=== PATIENT | female | born 1960 ===

== ENCOUNTER 2024-02-26 05:51 | Day surgery (SDC) | payer OTHER ==
[~2024-02-26] VITALS: Ht 162.6 cm; Wt 63.5 kg
[~2024-02-26 05:51] MED LIST: VITAMIN D310 MC4 PO
[2024-02-26] MEDS ORDERED: DIBUCAINE 30 GM TUBE ONE (10:17)
[2024-02-26] MEDS ORDERED: POVIDONE-IODINE 118 ML BOTT TOP ONE (10:17)
[2024-02-26] MEDS ORDERED: HEMOSTATIC MATRIX 1 KIT KIT TOP ONE (10:17)
[2024-02-26] MEDS ORDERED: CEFTRIAXONE SODIUM 2,000 MG VIAL ONE (10:18)
[2024-02-26] MEDS ORDERED: LIDOCAINE HCL 1% 20ML VIAL IJ ONE (10:18)
[2024-02-26] MEDS ORDERED: METRONIDAZOLE/SODIUM CHLORIDE 500 MG/100 ML PIGGYBACK IV ONE (10:18)
[2024-02-26] MEDS ORDERED: LIDOCAINE HCL 1%/EPINEPHRINE 20ML VIAL IJ ONE (10:19)
[2024-02-26] MEDS ORDERED: BUPIVACAINE HCL/MPF 0.5% 30ML VIAL ONE (10:27)
[2024-02-26] MEDS ORDERED: BUPIVACAINE LIPOSOME/PF 266 MG/20 ML VIAL IJ ONE (10:49)
[2024-02-26] MEDS ORDERED: TAMSULOSIN HCL 0.4 MG CAP PO ONE ×2 (11:45→13:13)
[2024-02-26] MEDS ORDERED: OXYC1TAB9 PO (12:06)
== END 2024-02-26 15:30 | disposition home or self-care (01) ==
LOC: CIR.AMB 05:51
PROVIDERS: ATTEND Surgery
DX: K64.2 Third degree hemorrhoids (principal); K64.4 Residual hemorrhoidal skin tags; K62.89 Other specified diseases of anus and rectum; K62.5 Hemorrhage of anus and rectum; J45.909 Unspecified asthma, uncomplicated